=== PATIENT | female | born 1975 | race African-American/Black ===

== ENCOUNTER 2018-12-27 20:06 | Emergency (ER) | payer BC, MEDICAID, OTHER ==
[~2018-12-27] VITALS: Ht 167.6 cm; Wt 96.0 kg
[2018-12-27 20:19] VITALS: BP 152/102
== END 2018-12-27 23:55 | disposition left against medical advice (07) ==
LOC: ER 20:06
DX: Z53.21 Procedure and treatment not carried out due to patient leaving prior to being seen by health care provider (principal)